=== PATIENT | male | born 1980 | race Caucasian/White ===

== ENCOUNTER 2017-02-16 02:24 | Emergency (ER) | payer BC, OTHER ==
[2017-02-16] MEDS ORDERED: MEPERIDINE HCL/PF 100 MG/1 ML INJECTION ONE (03:37)
[2017-02-16] MEDS ORDERED: HYDROcodone-APAP 5 MG -325 MG TABLET PO PRN (03:40)
[2017-02-16] MEDS ORDERED: Penicillin V Potassium Tab 500 MG TAB PO ONE (03:42)
[2017-02-16] MEDS ORDERED: HYDROcodone-APAP 5 MG -325 MG TABLET PO ONE (03:42)
[2017-02-16] MEDS ORDERED: Penicillin V Potassium Tab 500 MG TAB PO SCH (03:42)
[2017-02-16] MEDS ORDERED: MEPERIDINE HCL/PF 100 MG/1 ML INJECTION IM ONE (03:42)
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
[2017-02-16 05:37] VITALS: RESP 18; TEMP 97.2
== END 2017-02-16 03:50 | disposition home or self-care (01) ==
LOC: ER 02:24
DX: K04.7 Periapical abscess without sinus (principal); K02.9 Dental caries, unspecified
CPT/HCPCS: 96372; 99282; J2175